=== PATIENT | female | born 1985 | race Two or more races ===

== ENCOUNTER 2017-11-08 16:27 | Emergency (ER) | payer OTHER ==
[~2017-11-08] VITALS: Ht 165.1 cm; Wt 84.8 kg
--- NOTE | 2017-11-08 17:12 | Emergency Room Report ---
History of Present Illness General Chief Complaint: Medical Clearance Source: EMS Present Illness HPI 32-year-old female presents to the emergency department complaining of 10 out of 10 in severity Left Knuckle pain to digits 2-4, after being handcuffed. no previous injury. Denies open wounds, bleeding or bruising. Denies numbness tingling or loss of sensation or gross motor movements of the extremities, incontinence of bowel or bladder. Denies CP, Palpitations, LOC, AMS, dizziness, Changes in Vision, weakness or a sudden severe headache. Allergies: Coded Allergies: No Known Allergies (Unverified , 11/08/17) Patient History Past Medical History: see triage record Past Surgical History: none Pertinent Family History: none Last Menstrual Period: 11/05/17 Now: No Reviewed Nursing Documentation: PMH: Agreed; PSxH: Agreed Nursing Documentation-PMH Past Medical History: No Stated History Review of Systems All Other Systems: negative except mentioned in HPI Physical Exam Vital Signs Date Time Temp Pulse Resp B/P (MAP) Pulse Ox O2 Delivery O2 Flow Rate FiO2 11/08/17 16:28 98.2 86 16 140/84 97 Room Air 98.2 Sp02 EP Interpretation: reviewed, normal General Appearance: no apparent distress, alert, GCS 15, non-toxic Head: normocephalic, atraumatic Eyes: bilateral eye normal inspection, bilateral eye PERRL ENT: hearing grossly normal, normal voice Neck: full range of motion Respiratory: lungs clear, normal breath sounds, speaking full sentences Cardiovascular #1: regular rate, rhythm, no edema, normal capillary refill Cardiovascular #2: 2+ radial (L) Musculoskeletal: back normal, gait/station normal, normal range of motion, tender - PIP joint dorsal ttp to left digist 2-4. no swelling , bruising or abrasions noted. Neurologic: alert, oriented x3, responsive, motor strength/tone normal, sensory intact, normal gait, speech normal, grossly normal Psychiatric: judgement/insight normal, other - Pt. exhibits mouth smacking Skin: normal color, no rash, warm/dry, well hydrated Medical Decision Making PA Attestation Dr. Gr is my supervising Physician whom patient management has been discussed with. Diagnostic Impression: Primary Impression: Medical clearance for incarceration ER Course 32-year-old female presents to the emergency department complaining of 10 out of 10 in severity Left Knuckle pain to digits 2-4, after being handcuffed. no previous injury. Denies open wounds, bleeding or bruising. Denies numbness tingling or loss of sensation or gross motor movements of the extremities, incontinence of bowel or bladder. Denies CP, Palpitations, LOC, AMS, dizziness, Changes in Vision, weakness or a sudden severe headache. Ddx considered but are not limited to Fracture, dislocation, contusion, Sprain/ Strain/Spasm, Epidural abscess, Neoplastic mets. Vital signs: are WNL, pt. is afebrile H&PE are most consistent with musculoskeletal injury will perform imaging to r/ o fractures/dislocations. ORDERS: - X-ray Left hand - negative for fx, Dislocation, or significant soft tissue injury, per preliminary read in ED, and signed by COLLEEN Carranza, my supervising physician has reviewed, and agrees with my interpretation. ED INTERVENTIONS: - Tylenol PO DISCHARGE: At this time pt. is stable for d/c to home. Will provide printed patient care instructions, and any necessary prescriptions. Care plan and follow up instructions have been discussed with the patient prior to discharge. Other X-Ray Diagnostic Results Other X-Ray Diagnostic Results : X-Ray ordered: Left Hand # of Views/Limited Vs Complete: 3 View Indication: Pain EP Interpretation: Yes PA Xray: Interpretation reviewed, by supervising MD, and agrees with findings. Interpretation: no dislocation, no soft tissue swelling, no fractures Impression: No acute disease Electronically Signed by: Kamila Carranza PA-C Last Vital Signs Date Time Temp Pulse Resp B/P (MAP) Pulse Ox O2 Delivery O2 Flow Rate FiO2 11/08/17 16:28 98.2 86 16 140/84 97 Room Air 98.2 Disposition: D/C TO [facility] IN [facility] Condition: Stable Departure Forms: Long-Term Clearance Patient Instructions: Medical Screening Exam Additional Instructions: Take medications as directed. Follow up with a Primary Care Provider in 3-5 days, even if your symptoms have resolved. --Please review list of primary care clinics, if you do not already have a primary care provider Return sooner to ED if new symptoms occur, or current symptoms become worse. - Please note that this Emergency Department Report was dictated using [employer] hr[employer] developer technology software, occasionally this can lead to erroneous entry secondary to interpretation by the dictation equipment. Kamila Carranza Nov 08, 2017 17:12
[2017-11-08 17:14] VITALS: BP 140/84
--- NOTE | 2017-11-08 17:25 | Diagnostic Imaging Report ---
EXAM: XR Left Hand Complete, 3 or More Views CLINICAL HISTORY: PAIN TECHNIQUE: Frontal, lateral and oblique views of the left hand. COMPARISON: No relevant prior studies available. FINDINGS: Bones/joints: No acute displaced fracture or dislocation. Soft tissues: Unremarkable. No radiopaque foreign body. IMPRESSION: No acute displaced fracture or dislocation.
[2017-11-08 17:42] VITALS: BP 139/80
== END 2017-11-08 17:42 ==
LOC: EMR 17:25
DX: M79.645 Pain in left finger(s) (principal); Z02.89 Encounter for other administrative examinations
CPT/HCPCS: 99283